=== PATIENT | female | born 1970 | race African-American/Black ===

== ENCOUNTER 2017-12-16 13:47 | Emergency (ER) | payer BC ==
[2017-12-16 14:38] LABS: #Basophils 0.1 thou/uL (0.0-0.2); #Eosinphils 0.1 thou/uL (0.0-0.7); #Lymphocytes 2.4 thou/uL (1.20-3.40); #Monocytes 0.4 thou/uL (0.11-0.59); #Neutrophils 6.3 thou/uL (1.40-6.50); %Basophils 1.1 % (0.0-1.0); %Eosinophils 0.7 % (0.0-10.0); %Lymphocytes 26.1 % (21.0-51.0); %Monocytes 3.8 % (0.0-10.0); %Neutrophils 68.2 % (42.0-75.0); Hemoglobin 15.4 g/dL (12.0-16.0); Mean Corpuscular HGB CONC 34.3 g/dL (32.0-36.0); Mean Corpuscular Hemoglobin 28.4 pg (27.0-31.0); Mean Corpuscular Volume 82.6 fL (78.0-98.0); Mean Platelet Volume 8.6 fL (7.4-10.4); Platelet Count 220 thou/uL (130-400); RBC Distribution Width 11.8 % (11.5-14.5); Red Blood Cell (RBC) Count 5.43 mill/uL (4.20-5.40); White Blood Cell (WBC) Count 9.2 thou/uL (4.8-10.8)
[2017-12-16 14:39] LABS: Bilirubin Negative (Negative); Blood, Urine Negative (Negative); Clarity CLEAR (Clear); Glucose, Urine (Dipstick) Negative (Negative); Leukocyte Negative (Negative); Nitrite Negative (Negative); Protein, Urine (Dipstick) Negative (Neg-Trace); Specific Gravity, Urine 1.019 (1.002-1.036); Urobilinogen 0.2 mg/dL (0.2-1.0)
[2017-12-16 14:45] LABS: Pregnancy Test - Urine (BHCG) Negative (Negative); Pregu Control Background? CLEAR/WHITE (CLR/WHITE); Pregu Control Bar Appear? YES (CONTROL BAR); Specific Gravity 1.019 (1.002-1.036)
[2017-12-16] MEDS ORDERED: ISOVUE-370 76%-LOCM 1 ML ONE (15:04)
[2017-12-16 15:08] LABS: CKMB 1.1 ng/mL (0-6.6); Troponin I Less than 0.010 ng/mL (< 0.028)
[2017-12-16 15:38] LABS: ALT (SGPT) 15 U/L (8-55); Alkaline Phosphatase 102 U/L (40-150); BUN (Urea Nitrogen) 15 mg/dL (7.0-18.7); Bilirubin, Total 0.5 mg/dL (0.2-1.2); Calc. Creatinine Clearance 0 mL/min (70-130); Calcium 10.1 mg/dL (7.8-10.44); Carbon Dioxide 27 mmol/L (22-29); Estimated GFR-MDRD 74; Glucose 84 mg/dL (70-105); Lipase 17 U/L (8-78)
--- NOTE | 2017-12-16 15:58 | RAD ---
PORTABLE CHEST 1 VIEW: DATE: 12/16/17. TIME: 2:09 p.m. HISTORY: Bilateral flank pain, nausea, and vomiting. FINDINGS: Comparison is made with the exam of 09/24/15. There is scoliosis of the spine. The heart size is normal. The lungs are expanded without focal are as of consolidation, pneumothorax, rob pulmonary edema, or pleural effusions. IMPRESSION: No acute process. POS: DENNYS
[2017-12-16] MEDS ORDERED: HYDROcodone/Acetaminophen 10/325 mg Tablet ONE (16:11)
[2017-12-16 16:14] LABS: Chloride 100 mmol/L (98-107); Potassium 3.9 mmol/L (3.5-5.1); Sodium 137 mmol/L (136-145)
[2017-12-16 16:15] LABS: Protein, Total 7.4 g/dL (6.0-8.3)
[2017-12-16 16:17] LABS: BHCG - Serum Negative (NEGATIVE); Pregs Control Background? CLEAR/WHITE (CLR/WHITE); Pregs Control Bar Appear? YES (CONTROL BAR)
[2017-12-16 16:20] LABS: AST (SGOT) 15 U/L (5-34)
[2017-12-16 16:24] LABS: Albumin 4.9 g/dL (3.5-5.0); Anion Gap 14 mmol/L (10-20); Globulin 2.5 g/dL (2.4-3.5)
--- NOTE | 2017-12-16 16:37 | CT ---
CT ABDOMEN AND PELVIS WITH IV CONTRAST: History: Bilateral flank pain, abdominal pain. FINDINGS: The lung bases are clear. The liver, spleen, pancreas, adrenal glands and kidneys are normal in appea dora. No calcified gallstones are seen. No free air, free fluid, or lymphadenopathy is identified in the abdomen or pelvis. Uterus and ovaries are present. There is suggestion of uterine fibroid. There is scoliosis of the spine. There is fecal material in the colon. Normal appearing appendix is seen. IMPRESSION: No acute process. POS: DENNYS
== END 2017-12-16 16:22 | disposition home or self-care (01) ==
LOC: ERS 13:47
DX: R10.9 Unspecified abdominal pain (principal)
CPT/HCPCS: 36415; 71045; 74177; 80053; 81003; 81025; 82550; 82553; 83690; 83880; 84484; 84703; 85025; 93005

== ENCOUNTER 2018-01-04 14:49 | Outpatient (CLI) | payer BC | END 2018-01-04 14:50 | disposition home or self-care (01) | LOC: BICMAMMO 14:49 | PROVIDERS: ATTEND Family Medicine | DX: Z12.31 Encounter for screening mammogram for malignant neoplasm of breast (principal) | CPT/HCPCS: 77063; 77067 ==